=== PATIENT | female | born 1985 | race African-American/Black ===

== ENCOUNTER 2021-02-14 13:32 | Emergency (ER) | payer MEDICAID ==
[~2021-02-14] VITALS: Ht 170.2 cm; Wt 134.3 kg
--- NOTE | 2021-02-14 14:33 | PHYS DOC ---
Past History Past Medical History: Asthma, CHF Past Surgical History: , Hysterectomy, Oophorectomy Additional Past Surgical Histo: left ovary; D&C x 5; ovarian cyst; hystoscopy Alcohol Use: Occasionally General Adult EDM: Chief Complaint: LOWER EXT PAIN HPI: HPI: Patient is a 35-year-old female who presents with bilateral knee pain after a fall in December. Patient states that she tripped over a crack in a step and fell down onto both of her knees. Patient states since the fall she has had pain and tingling to bilateral legs and knees. Patient states that the pain is worse when she is driving or at nighttime. Patient states that she feels like she has got more swelling than normal in her lower legs bilaterally. Patient reports using muscle rub and Tylenol for pain relief. Patient is able to ambulate on her own, full range of motion intact. Has a history of CHF and asthma. Review of Systems: Review of Systems: Constitutional: Denies fever or chills Eyes: Denies change in visual acuity HENT: Denies nasal congestion or sore throat Respiratory: Denies cough or shortness of breath Cardiovascular: Denies chest pain or edema GI: Denies abdominal pain, nausea, vomiting, bloody stools or diarrhea : Denies dysuria Musculoskeletal: Reports bilateral leg pain, knee pain Integument: Denies rash Neurologic: Denies headache, focal weakness or sensory changes Endocrine: Denies polyuria or polydipsia Lymphatic: Denies swollen glands Psychiatric: Denies depression or anxiety Allergies: Allergies: Allergies Coded Allergies Type Severity Reaction Last Updated Verified coconut Allergy Unknown 02/14/21 Yes lactose Allergy Unknown 02/14/21 Yes pineapple Allergy Unknown 02/14/21 Yes topiramate Allergy Unknown Hives 02/14/21 Yes Physical Exam: PE: Constitutional: Well developed, well nourished, no acute distress, non-toxic appearance. [] HENT: Normocephalic, atraumatic, bilateral external ears normal, oropharynx moist, no oral exudates, nose normal. [] Eyes: PERRLA, EOMI, conjunctiva normal, no discharge. [] Neck: Normal range of motion, no tenderness, supple, no stridor. [] Cardiovascular:Heart rate regular rhythm, no murmur [] Lungs & Thorax: Bilateral breath sounds clear to auscultation [] Abdomen: Bowel sounds normal, soft, no tenderness, no masses, no pulsatile masses. [] Skin: Warm, dry, bruising, bilateral knees Back: No tenderness, no CVA tenderness. [] Extremities: No tenderness, ROM intact, bilateral, lower leg nonpitting edema Neurologic: Alert and oriented X 3, normal motor function, normal sensory function, no focal deficits noted. [] Psychologic: Affect normal, judgement normal, mood normal. [] Current Patient Data: Vital Signs: Vital Signs Date Time Temp Pulse Resp B/P (MAP) Pulse Ox O2 Delivery O2 Flow Rate FiO2 02/14/21 14:05 97.8 68 18 121/76 (91) 97 Room Air EKG: EKG: [] Radiology/Procedures: Radiology/Procedures: []4 views bilateral knees HISTORY: Pain status post fall AP lateral oblique and sunrise views of the knees obtained bilaterally The visualized osseous structures appear normal. IMPRESSION: No acute findings. Electronically signed by: Mxaim Baez III, MD (02/14/2021 3:19 PM) [facility] Heart Score: C/O Chest Pain: No Risk Factors: Risk Factors: DM, Current or recent (<one month) smoker, HTN, HLP, family history of CAD, obesity. Risk Scores: Score 0 - 3: 2.5% MACE over next 6 weeks - Discharge Home Score 4 - 6: 20.3% MACE over next 6 weeks - Admit for Clinical Observation Score 7 - 10: 72.7% MACE over next 6 weeks - Early Invasive Strategies Course & Med Decision Making: Course & Med Decision Making Pertinent Labs and Imaging studies reviewed. (See chart for details) [] Patient reporting bilateral knee pain and bilateral leg swelling. Nonpitting edema noted in lower legs. Range of motion is still intact. Patient reports pain is worse when she is driving at night or when she lays down at night she noticed his swelling and tingling. Patient has been using Tylenol and muscle rubs with no relief. Bilateral knee x-rays ordered to rule out fracture. Bilateral knee x-rays are negative for acute fracture. All labs are unremarkable. Patient needs to follow-up with PCP for further management. Patient most likely has bruising to bilateral knees from falling. Dragon Disclaimer: Dragon Disclaimer: This electronic medical record was generated, in whole or in part, using a voice recognition dictation system. Departure Departure: Impression: Primary Impression: Knee contusion Qualified Codes: S80.00XA - Contusion of unspecified knee, initial encounter Disposition: 01 DC HOME SELF CARE/HOMELESS Condition: STABLE Referrals: PCP,NO (PCP) Patient Instructions: Knee Pain, [id number] Additional Instructions: You are seen in the emergency room today for bilateral knee pain after a fall. Your x-rays were negative for any fractures or acute abnormalities. All of your lab work was unremarkable. Continue to take ibuprofen for discomfort. I am sending you home with a prescription for flexeril. Please return to the ED with worsening symptoms or concerns. EMERGENCY DEPARTMENT GENERAL DISCHARGE INSTRUCTIONS Thank you for coming to [facility] (ED) today and trusting us with you care. We trust that you had a positivie experience in our Emergency Department. If you wish to speak to the department management, you may call the director at [phone]. YOUR FOLLOW UP INSTRUCTIONS ARE FOLLOWS: 1. Do you have a private Doctor? If you do not have a private doctor, please ask for a resource list of physicians or clinics that may be able to assist you with follow up care. 2. The Emergency Physician has interpreted your x-rays. The X-Ray specialist will also review them. If there is a change in the findings, you will be notified in 48 hours when at all possible. 3. A lab test or culture has been done, your results will be reviewed and you will be notified if you need a change in treatment. ADDITIONAL INSTRUCTIONS AND INFORMATION: 1. Your care today has been supervised by a physician who is specially trained in emergency care. Many problems require more than one evaluation for a complete diagnosis and treatment. We recommend that you schedule your follow up appointment as recommended to ensure complete treatment of you illness or injury. If you are unable to obtain follow up care and continue to have a problem, or if your condition worsens, we recommend that you return to the ED. 2. We are not able to safely determine your condition over the phone nor are we able to give sound medical advice over the phone. For these safety reasons, if you call for medical advice we will ask you to come to the ED for further evaluation. 3. If you have any questions regarding these discharge instructions please call the ED at [phone]. SAFETY INFORMATION: In the interest of safety, wellness, and injury prevention; we encourage you to wear your sealbelt, if you smoke; quite smoking, and we encourage family to use a pr otective helmet for bicycling and other sporting events that present an increased risk for head injury. IF YOUR SYMPTOMS WORSEN OR NEW SYMPTOMS DEVELOP, OR YOU HAVE CONCERNS ABOUT YOUR CONDITION; OR IF YOUR CONDITION WORSENS WHILE YOU ARE WAITING FOR YOUR FOLLOW UP APPOINTMENT; EITHER CONTACT YOUR PRIMARY CARE DOCTOR, THE PHYSICIAN WHOSE NAME AND NUMBER YOU WERE GIVEN, OR RETURN TO THE ED IMMEDIATELY. Scripts Cyclobenzaprine Hcl (CYCLOBENZAPRINE HCL) 10 Mg Tablet 1 TAB PO TID for pain for 5 Days, #15 TAB Prov: ARTHUR SANCHEZ APRN 02/14/21 ARTHUR SANCHEZ APRN Feb 14, 2021 14:33
[2021-02-14] MEDS ORDERED: KETOROLAC 15 MG/ML VIAL. IVP ONE (14:45)
--- NOTE | 2021-02-14 15:21 | RAD ---
4 views bilateral knees HISTORY: Pain status post fall AP lateral oblique and sunrise views of the knees obtained bilaterally The visualized osseous structures appear normal. IMPRESSION: No acute findings. Electronically signed by: Maxim Baez III, MD (02/14/2021 3:19 PM) [facility]
[2021-02-14 15:36] LABS: BASO % 0 % (0-3); EOS # 0.2 x10^3/uL (0.0-0.7); EOS % 2 % (0-3); HEMATOCRIT 40.1 % (36.0-47.0); HEMOGLOBIN 12.9 g/dL (12.0-15.5); LYMPH # 3.3 x10^3/uL (1.0-4.8); LYMPH % 28 % (24-48); MEAN CORPUSCULAR HEMOGLOBIN 27 pg (25-35); MEAN CORPUSCULAR HGB CONC 32 g/dL (31-37); MEAN CORPUSCULAR VOLUME 84 fL (79-100); MONO # 0.6 x10^3/uL (0.0-1.1); MONO % 5 % (0-9); NEUT # 7.6 x10^3uL (1.8-7.7); NEUT % 65 % (31-73); PLATELET COUNT 300 x10^3/uL (140-400); RED BLOOD COUNT 4.76 x10^6/uL (3.50-5.40); RED CELL DISTRIBUTION WIDTH 15.3 % (11.5-14.5); WHITE BLOOD COUNT 11.8 x10^3/uL (4.0-11.0)
[2021-02-14 15:41] LABS: POTASSIUM ISTAT 3.7 mmol/L (3.5-5.0)
[2021-02-14 15:42] LABS: HEMOGLOBIN ISTAT 13.9 gm/dL
[2021-02-14 16:05] LABS: BILIRUBIN,URINE NEG (NEG); CLARITY,URINE CLEAR; COLOR,URINE YELLOW; GLUCOSE,URINE NEG (NEG); NITRITE,URINE NEG (NEG)
[2021-02-14 16:06] LABS: BACTERIA,URINE 0 /HPF (0-FEW); RBC,URINE OCC /HPF (0-2); SQUAMOUS EPITHELIAL CELL,UR FEW /LPF; WBC,URINE OCC /HPF (0-4)
[2021-02-14] MEDS ORDERED: CYCL-331 PO (16:08)
[2021-02-14 16:20] VITALS: BP 115/70
== END 2021-02-14 16:24 | disposition home or self-care (01) ==
LOC: ER 13:32
DX: S80.02XA Contusion of left knee, initial encounter (principal); S80.01XA Contusion of right knee, initial encounter; J45.909 Unspecified asthma, uncomplicated; I50.9 Heart failure, unspecified; Z91.018 Allergy to other foods; Z91.011 Allergy to milk products; Z88.8 Allergy status to other drugs, medicaments and biological substances; W01.0XXA Fall on same level from slipping, tripping and stumbling without subsequent striking against object, initial encounter; Y93.89 Activity, other specified; Y92.89 Other specified places as the place of occurrence of the external cause; Y99.8 Other external cause status
CPT/HCPCS: 36415; 73564; 80047; 81001; 83880; 85025; 96374; 99284; J1885

== ENCOUNTER → 2021-05-11 | Outpatient (CLI) | payer MEDICAID ==
[~2021-05-11] MED LIST: CYCL-331 PO
[2021-05-11 13:14] LABS: BASO % 0 % (0-3); EOS % 0 % (0-3); HEMATOCRIT 38.1 % (36.0-47.0); HEMOGLOBIN 12.4 g/dL (12.0-15.5); LYMPH # 2.2 x10^3/uL (1.0-4.8); LYMPH % 11 % (24-48); MEAN CORPUSCULAR HEMOGLOBIN 27 pg (25-35); MEAN CORPUSCULAR HGB CONC 33 g/dL (31-37); MEAN CORPUSCULAR VOLUME 83 fL (79-100); MONO # 0.9 x10^3/uL (0.0-1.1); MONO % 5 % (0-9); NEUT # 15.8 x10^3uL (1.8-7.7); NEUT % 84 % (31-73); PLATELET COUNT 336 x10^3/uL (140-400); RED BLOOD COUNT 4.58 x10^6/uL (3.50-5.40); RED CELL DISTRIBUTION WIDTH 15.1 % (11.5-14.5)
[2021-05-11 13:19] LABS: WHITE BLOOD COUNT 18.9 x10^3/uL (4.0-11.0)
[2021-05-11 13:21] LABS: ALBUMIN 3.3 g/dL (3.4-5.0); ALBUMIN/GLOBULIN RATIO 0.8 (1.0-1.7); C REACTIVE PROTEIN 2.9 mg/L (0-3.3); CALCIUM 8.9 mg/dL (8.5-10.1); CREATININE 0.9 mg/dL (0.6-1.0); GFR 87.3; POTASSIUM 3.7 mmol/L (3.5-5.1); TOTAL BILIRUBIN 0.2 mg/dL (0.2-1.0); TOTAL PROTEIN 7.2 g/dL (6.4-8.2)
[2021-05-11 14:08] LABS: % BANDS 1 % (0-9); % LYMPHS 13 % (24-48); % MONOS 2 % (0-10); % SEGS 84 % (35-66)
[2021-05-11 14:09] LABS: PLT ESTIMATE ADEQUATE (ADEQUATE)
[2021-05-11 14:26] LABS: SEDIMENTATION RATE 30 (0-25)
== END ==
LOC: LAB 12:00
PROVIDERS: ATTEND Nurse Practitioner Family
DX: G43.709 Chronic migraine without aura, not intractable, without status migrainosus (principal)
CPT/HCPCS: 80053; 84443; 85007; 85025; 85651; 86038; 86140

== ENCOUNTER → 2021-09-07 | Outpatient (CLI) | payer MEDICAID ==
[~2021-09-07] MED LIST changes: -CYCL-331 PO; +CYCL10TA19 PO
--- NOTE | 2021-09-07 12:27 | RAD ---
EXAM: Pelvis, single view; left knee, 2 views. HISTORY: Fall. COMPARISON: CT dated 07/07/2016. FINDINGS: Pelvis: A frontal view the pelvis is obtained. There is widening of the pubis symphysis. There is no fracture. There is mild degenerative subchondral cyst formation involving the femoral head-neck junct ions. Left knee: 2 views left knee are obtained. There is no fracture, dislocation or subluxation. There is no joint effusion. IMPRESSION: 1. Widening of the pubis symphysis. This appears stable compared to a remote CT performed 07/07/2016. 2. No convincing acute osseous finding. Electronically signed by: Angelita Duke MD (09/07/2021 12:25 PM) [id number]
== END ==
LOC: RAD 11:15
PROVIDERS: ATTEND Nurse Practitioner Family
DX: M25.552 Pain in left hip (principal)
CPT/HCPCS: 72170; 73560

== ENCOUNTER → 2021-11-07 | Outpatient (CLI) | payer MEDICAID ==
--- NOTE | 2021-11-07 17:46 | RAD ---
EXAM: Chest, 2 views. HISTORY: Cough. COMPARISON: None. FINDINGS: 2 views of the chest are obtained. There is no infiltrate, pleural effusion or pneumothorax . The heart is normal in size. IMPRESSION: No acute pulmonary finding. Electronically signed by: Angelita Duke MD (11/07/2021 5:44 PM) [id number]
== END ==
LOC: DXRAD 17:21
PROVIDERS: ATTEND Nurse Practitioner Family
DX: Z20.822 Contact with and (suspected) exposure to COVID-19 (principal)
CPT/HCPCS: 71046